=== PATIENT | female | born 1990 | race American Indian/Alaskan Native ===

== ENCOUNTER 2019-02-10 21:43 | Inpatient (IN) | payer OTHER ==
[2019-02-11] MEDS ORDERED: SUBLIMAZE IV PRN (00:18)
[2019-02-11] MEDS ORDERED: XYLOCAINE 2% INFILTRATI ONE (00:18)
[2019-02-11] MEDS ORDERED: BRETHINE SUB-Q PRN (00:18)
--- NOTE | 2019-02-11 00:22 | History and Physical Report ---
History of Present Illness Date of examination: 02/11/19 Date of admission: 02/11/19. Chief complaint: 28 year old presents with leaking of water since 19:30 tonight. Patient states fluid was clear. Patient received care at [facility] and she brings records with her. LMP 05/09/18. EDC 02/13/19. significant for the following: late transfer-in from [facility] at 30 weeks gestation. labs are as follows: O+, antibody screen negative, pap smear negative, rubella immune, HIV negative, RPR nonreactive, hepatitis B surface antigen negative, chlamydia negative, gonorrhea negative, GBS negative, sugar test normal. Past History Past Medical History: no pertinent history Past Surgical History: no surgical history [employer] History: denies: abnormal PAP smear, chlamydia, gonorrhea, hepatitis B, hepatitis C, herpes, HIV, syphilis, trichomonas Family/Genetic History: diabetes, hypertension Social history: , full code. denies: smoking, alcohol abuse, prescription drug abuse, IV drug use - Obstetrical History Expected Date of Delivery: 02/13/19 Actual Gestation: 39 Week(s) 5 Day(s) : 2 Para: 1 Hx # Term Pregnancies: 1 Number of Pregnancies: 0 Spontaneous Abortions: 0 Induced : 0 Number of Living Children: 1 Medications and Allergies Allergies Allergy/AdvReac Type Severity Reaction Status Date / Time No Known Allergies Allergy Unverified 02/11/19 00:33 Review of Systems All systems: negative (contractions and leaking of water) - Vital Signs Vital signs: Vital Signs Temp Resp 98 F 18 02/10/19 21:57 02/10/19 21:57 Temp Pulse Resp BP Pulse Ox 98 F 96 H 18 111/68 02/10/19 21:57 02/11/19 00:01 02/10/19 21:57 02/11/19 00:01 - Physical Exam Abdomen: Positive: normal appearance, soft. Negative: distention, tenderness, guarding, rigidity Genitourinary (Female): Positive: normal external genitalia, normal perenium. Negative: perineal/vulvar lesions Vagina: Positive: other (clear fluid, + nitrazine, + fern) Uterus: Positive: enlarged (s=d) Anus/Rectum: Positive: normal perianal skin Extremities: Positive: normal. Negative: tenderness, edema - Obstetrical FHR: category 1 Uterine Contraction Monitor Mode: External Cervical Dilatation: 3 Cervical Effacement Percentage: 70 station: -3 Uterine Contraction Pattern: Irregular Uterine Contraction Intensity: Mild Results Result Diagrams: 02/11/19 00:18 All other labs normal. Assessment and Plan A: at 39 weeks, 5 days geatation. Spontaneous rupture of membranes. Early labor. GBS negative. P: Admit. Continuous EFM. Pitocin augmentation of labor. Discussed with patient risks and benefits of Pitocin augmentation of labor. Patient consented to Pitocin augmentation of labor. Anticipate vaginal .
[2019-02-11] MEDS ORDERED: PITOCin/NS 30 UNIT/500ML 30 UNITS/500 ML BAG IV SCH (01:00)
[2019-02-11] MEDS ORDERED: PITOCin/NS 20 UNIT/1000ML DRIP 20 UNITS/1,000 ML BAG IV SCH (01:00)
[2019-02-11 01:03] LABS: Hematocrit 40.2 % (30.3-42.9); Hemoglobin 13.7 gm/dl (10.1-14.3); Mean Corpuscular HGB Conc 34 % (30-34); Mean Corpuscular Volume 87 fl (79-97); Platelet Count 177 K/mm3 (140-440); Red Blood Count 4.61 M/mm3 (3.65-5.03); Red Cell Distribution Width 14.1 % (13.2-15.2)
--- NOTE | 2019-02-11 01:26 | Event Note ---
Date: 02/11/19 Mild tachycardia noted (170s-180s). Consulted with Dr. Neely re: patient and mild tachycardia. Dr. Neely states to observe FHR tracing for resolution of tachycardia and call him back if no resolution in an hour. Patient has received IV fluid bolus of Lactated Ringers solution and has had Tylenol 650 mg po. She is resting in lateral position and has oxygen per face mask at 10 LPM.
[2019-02-11] MEDS ORDERED: TYLENOL PO ONE (01:45)
[2019-02-11] MEDS: LACTATED RINGERS 1,000 ML IV SCH ×3 (01:59→08:37)
[2019-02-11] MEDS ORDERED: FLONASE NS PRN (03:16)
[2019-02-11] MEDS ORDERED: NARCAN 2 MG/2 ML IV PRN (06:59)
[2019-02-11] MEDS ORDERED: fentaNYL-BUPIV 2 MCG/ML-0.125% 200 MCG/100 ML BAG EPIDURAL SCH (07:00)
--- NOTE | 2019-02-11 07:04 | Anesthesia Consultation ---
Anesthesia Consult and Med Hx Date of service: 02/11/19 - Airway Anesthetic Teeth Evaluation: Good ROM Head & Neck: Adequate Mental/Hyoid Distance: Adequate Mallampati Class: Class II Intubation Access Assessment: Probably Good - Pulmonary Exam CTA: Yes - Cardiac Exam Cardiac Exam: RRR - Pre-Operative Health Status ASA Pre-Surgery Classification: ASA2 Proposed Anesthetic Plan: Epidural - Pulmonary Hx Smoking: No Hx Asthma: No Hx Respiratory Symptoms: No SOB: No COPD: No Home Oxygen Therapy: No Hx Pneumonia: No Hx Sleep Apnea: No - Cardiovascular System Hx Hypertension: No Hx Coronary Artery Disease: No Hx Heart Attack/AMI: No Hx Angina: No Hx Percutaneous Transluminal Coronary Angioplasty (PTCA): No Hx Cardia Arrhythmia: No Hx Pacemaker: No Hx Internal Defibrillator: No Hx Valvular Heart Disease: No Hx Heart Murmur: No Hx Peripheral Vascular Disease: No - Central Nervous System Hx Neuromuscular Disorder: No Hx Seizures: No CVA: No Hx Back Pain: No Hx Psychiatric Problems: No - Gastrointestinal Hx Ulcer: No Hx Gastroesophageal Reflux Disease: No - Endocrine Hx Renal Disease: No Hx End Stage Renal Disease: No Hx Cirrhosis: No Hx Liver Disease: No Hx Insulin Dependent Diabetes: No Hx Non-Insulin Dependent Diabetes: No Hx Thyroid Disease: No Hx Hypothyroidism: No Hx Hyperthyroidism: No - Hematic Hx Anemia: No Hx Sickle Cell Disease: No - Other Systems Hx Alcohol Use: Yes (social) Hx Substance Use: No Hx Cancer: No Hx Obesity: Yes (BMI 32)
--- NOTE | 2019-02-11 07:58 | Event Note ---
Date: 02/11/19/-2.
--- NOTE | 2019-02-11 09:20 | Event Note ---
Date: 02/11/19 E complete/-1 station. Patient comfortable.
[2019-02-11] MEDS ORDERED: NORCO 5/325 PO PRN (11:13)
[2019-02-11] MEDS ORDERED: MILK OF MAGNESIA PO PRN (11:13)
[2019-02-11] MEDS ORDERED: LANSINOH TP PRN (11:13)
[2019-02-11] MEDS ORDERED: TUCKS PAD TP PRN (11:13)
--- NOTE | 2019-02-11 11:20 | Procedure Note ---
OB Delivery Note - Delivery Date of Delivery: 02/11/19 Surgeon: MICHAEL MAYORGA Estimated blood loss: 300cc - Vaginal Delivery presentation: vertex Delivery position: OA Intrapartum events: meconium Delivery induction: none Delivery augmentation: pitocin Delivery monitor: external FHT, external uterine Route of delivery: Delivery placenta: spontaneous Delivery cord: 3 umbilical vessels, other (short cord) Delivery laceration: 1st degree (periurethral) Delivery repair: vicryl Anesthesia: epidural Delivery comments: Spontaneous vaginal delivery at 10:33 of liveborn female weighing 7 lb. 2 oz. over intact perineum with apgars of 8/9. Thin meconium stained amniotic fluid noted; NICU called to attend delivery. Baby born vigorous; spontaneous cry and respirations. Baby placed immediately skin to skin with mom after delivery. Baby dried and bulb suctioned. Short umbilical cord. 3 vessel cord double clamped and cut. Cord blood obtained. Spontaneous delivery of intact placenta and membranes. Pitocin to IV fluids after delivery of placenta. Fundus firm and midline. EBL 300 cc. 1st degree periurethral/periclitoral laceration repaired with 3-0 vicryl. No other lacerations noted. Vaginal sweep negative. Sponge count correct. Jason catheter placed. Mother and baby stable.
[2019-02-11] MEDS ORDERED: SODIUM CHLORIDE FLUSH SYRINGE 10 ML IV NR (12:00)
[2019-02-11] MEDS: IBUPROFEN PO SCH (17:51)
[2019-02-11] MEDS: FEOSOL PO SCH (22:55)
[2019-02-11] MEDS: COLACE PO SCH (22:55)
[2019-02-11] MEDS: AUGMENTIN 500 MG PO SCH (22:56)
[2019-02-11 23:21] LABS: Hematocrit 28.6 % (30.3-42.9); Hemoglobin 9.8 gm/dl (10.1-14.3)
--- NOTE | 2019-02-12 09:36 | Progress Note ---
Assessment and Plan - Patient Problems (1) Status post normal vaginal delivery Current Visit: Yes Status: Acute Plan to address problem: PPD 1 - stable Continue routine orders Discharge to home later today Follow up at [facility] as needed or in 4-6 weeks for exam (2) Anemia due to blood loss, acute Current Visit: Yes Status: Acute Plan to address problem: Asymptomatic Continue iron therapy Subjective - Subjective Date of service: 02/12/19 Principal diagnosis: PPD #1, s/p Interval history: see H&P, Event Notes and OB Delivery Procedure Note Patient reports: appetite normal, voiding normally, pain well controlled, ambulating normally, no dizzy ambulation : doing well, nursing well Objective - Vital Signs Latest vital signs: Vital Signs Temp Pulse Resp BP BP Pulse Ox 02/12/19 07:31 98.2 F 91 H 18 111/75 02/12/19 00:54 97.7 F 83 18 115/60 99 02/11/19 21:28 97.9 F 90 18 96/64 98 02/11/19 17:11 98.0 F 100 H 20 108/75 100 02/11/19 12:50 97.6 F 77 18 107/74 100 02/11/19 12:23 90 93 02/11/19 12:20 80 100 02/11/19 12:15 81 99 02/11/19 12:10 80 100 02/11/19 12:05 79 100 02/11/19 12:00 78 100 02/11/19 11:55 87 100 02/11/19 11:50 81 100 02/11/19 11:45 81 100 02/11/19 11:40 107 H 100 02/11/19 11:38 97.5 F L 14 02/11/19 11:36 86 112/67 02/11/19 11:35 76 99 02/11/19 11:30 98 H 100 02/11/19 11:25 100 H 100 02/11/19 11:22 93 H 107/74 02/11/19 11:12 72 100 02/11/19 11:09 75 103/62 02/11/19 11:07 87 100 02/11/19 11:02 75 100 02/11/19 10:57 88 100 02/11/19 10:52 75 100 02/11/19 10:46 75 98 02/11/19 10:41 104 H 100 02/11/19 10:36 85 100 02/11/19 10:32 103 H 80 L 02/11/19 10:31 118 H 100 02/11/19 10:26 82 100 02/11/19 10:21 102 H 100 02/11/19 10:16 79 100 02/11/19 10:11 66 100 02/11/19 10:06 69 100 02/11/19 10:01 69 100 02/11/19 10:00 64 109/72 02/11/19 09:56 65 107/72 100 02/11/19 09:51 97 H 104/69 100 02/11/19 09:46 87 100 02/11/19 09:45 60 104/67 02/11/19 09:41 72 100 02/11/19 09:40 78 110/72 02/11/19 09:36 74 106/63 100 Intake and Output 02/11/19 02/12/19 02/12/19 23:59 07:59 15:59 Intake Total 480 480 Output Total 1700 Balance -1220 480 Intake: Oral 480 Intake, Free Water 480 Output: Urine 1700 Indwelling Catheter 1200 Void 500 Other: Total, Intake Amount 480 Total, Output Amount 500 # Voids Void 1 - Exam Cardiovascular: Present: Regular rate Lungs: Present: Clear to auscultation, Normal air movement Abdomen: Present: normal appearance, soft Vulva: both: laceration/episiotomy (well approximated) Uterus: Present: normal, firm, fundal height at umbilicus Extremities: Present: normal Comments: scant lochia - Labs Labs: Abnormal lab results 02/11/19 Range/Units 23:00 Hgb 9.8 L D (10.1-14.3) gm/dl Hct 28.6 L D (30.3-42.9) %
--- NOTE | 2019-02-12 09:40 | Discharge Summary ---
Providers - Providers Date of Admission: 02/11/19 09:01 Date of discharge: 02/12/19 Attending physician: MYRIAM SCHREIBER MD Primary care physician: MYRIAM SCHREIBER MD Hospitalization Reason for admission: active labor, IUP at term Delivery: Episiotomy: none Laceration: 1st degree complications: none Discharge diagnosis: IUP at term delivered baby: female Hospital course: Uncomplicated Condition at discharge: Stable Disposition: DE-01 TO HOME OR SELFCARE - Discharge Diagnoses (1) Status post normal vaginal delivery Status: Acute (2) Anemia due to blood loss, acute Status: Acute Comment: Asymptomatic Continue iron therapy Encouraged iron-rich foods Plan - Discharge Medications Prescriptions: Ferrous Sulfate [Feosol 325 MG tab] 325 mg PO BID #60 tablet - Provider Discharge Summary Activity: routine, no sex for 6 weeks, no heavy lifting 4 weeks, no strenuous exercise Diet: routine Instructions: routine Additional instructions: [] Smoking cessation referral if applicable(refer to patient education folder for contact #) [] Refer to [facility] Booklet Call your doctor immediately for: * Fever > 100.5 * Heavy vaginal bleeding ( >1 pad per hour) * Severe persistent headache * Shortness of breath * Reddened, hot, painful area to leg or breast * Drainage or odor from incision. * Keep incision clean and dry at all times and follow doctor's instructions regarding bathing/showering - Follow up plan Follow up: MYRIAM SCHREIBER MD [Primary Care Provider] - 6 Weeks (Follow up at [facility] as needed or in 4-6 weeks for exam)
[2019-02-12] MEDS: AUGMENTIN 500 MG PO SCH (10:00)
[2019-02-12] MEDS: FEOSOL PO SCH (12:15)
[2019-02-12] MEDS: COLACE PO SCH (12:15)
[2019-02-12] MEDS: IBUPROFEN PO SCH ×2 (12:31)
[2019-02-12 17:46] VITALS: BP 114/72
== END 2019-02-12 19:55 | disposition home or self-care (01) | DRG 806 ==
LOC: TRG 21:43 → LD 23:51 → TRG 02-11 09:00 → LD 02-11 09:01 → OB 02-11 13:03 → UNDODISIN 02-12 14:31
PROVIDERS: ADMIT Obstetrics & Gynecology; ATTEND Obstetrics & Gynecology
PROC: 10E0XZZ Delivery of Products of Conception, External Approach (ICD-10-PCS; principal; 2019-02-11)
PROC: 3E0R3BZ Introduction of Anesthetic Agent into Spinal Canal, Percutaneous Approach (ICD-10-PCS; 2019-02-11)
PROC: 00HU33Z Insertion of Infusion Device into Spinal Canal, Percutaneous Approach (ICD-10-PCS; 2019-02-11)
PROC: 0HQ9XZZ Repair Perineum Skin, External Approach (ICD-10-PCS; 2019-02-11)
DX: O77.0 Labor and delivery complicated by meconium in amniotic fluid (principal); D62 Acute posthemorrhagic anemia; Z37.0 Single live birth; Z3A.39 39 weeks gestation of pregnancy; Z83.3 Family history of diabetes mellitus; Z82.49 Family history of ischemic heart disease and other diseases of the circulatory system; O76 Abnormality in fetal heart rate and rhythm complicating labor and delivery; O99.214 Obesity complicating childbirth; O70.0 First degree perineal laceration during delivery; O90.81 Anemia of the puerperium
CPT/HCPCS: 36415; 85014; 85018; 85027; 86592; 86850; 86900; 86901; 87529; G0378; J2590; J7120